=== PATIENT | female | born 1955 | race Caucasian/White ===

== ENCOUNTER 2024-09-14 05:43 | Day surgery (SDC) | payer MEDICARE, OTHER ==
[2024-09-07 15:08] LABS: MEAN PLATELET VOLUME 8.1 FL (7.4-10.4); PRE OP HEMATOCRIT 43.3 % (35.0-45.0); PRE OP HEMOGLOBIN 14.4 g/dL (12.0-16.0); PRE OP PLATELET COUNT 206 X10'3 (140-440); PRE OP WHITE BLOOD COUNT 5.0 10'3 (4.8-10.8); RED CELL DISTRIBUTION WIDTH 14.8 % (11.5-14.5)
[2024-09-07 15:27] LABS: CREATININE 1.10 MG/DL (0.40-0.90); PRE OP ALT 19 U/L (30-65); PRE OP ANION GAP 5 (8-16); PRE OP AST 19 U/L (10-37); PRE OP BILIRUB, TOTAL 0.6 MG/DL (0.0-1.0); PRE OP GLUCOSE 101 MG/DL (70-104); PRE OP POTASSIUM 3.8 MMOL/L (3.4-5.1); PRE OP SODIUM 139 MMOL/L (135-145); TOTAL CARBON DIOXIDE 28.6 MMOL/L (24-32); eGFR 50 ML/MIN
[2024-09-14] VITALS (11 sets, daily range): BP systolic 143–174; BP diastolic 71–96; PULSE 57–106; RESP 14–22; TEMP 97.8; O2SAT 96–100
[~2024-09-14] VITALS: Ht 167.6 cm; Wt 101.9 kg
[~2024-09-14 05:43] MED LIST: AMLO2.5T5 PO; APIX5TAB3 PO; CHOL200012 PO; ENAL-78 PO; FENO145T25 PO; FLUO40CA PO; MAGN400T39 PO; MULT-1074 PO; SIMV-42 PO; SOTA80TA10 PO; SOTA80TA73 PO
[2024-09-14] MEDS: DOCUMENT DATE & TIME OF BETA-BLOCKER PO ONE (06:19)
[2024-09-14] MEDS: ringers solution, lacted 1,000 ML IV SCH (06:19)
[2024-09-14] MEDS: ceFAZolin 2gm/dext,iso 50mL 50 ML IV ONE (06:19)
[2024-09-14] MEDS ORDERED: BUPIVAcaine 2.5mg/ml inj 50ml vial (contains preservative) ONE (06:43)
[2024-09-14] MEDS ORDERED: LIDOcaine 1% 30ml preserv. free vial ONE (06:43)
[2024-09-14] MEDS ORDERED: labetalol 20mg/4ml (5mg/ml) syringe IV PRN (07:20)
[2024-09-14] MEDS ORDERED: hydrALAZINE 20mg/ml inj. IV PRN (07:20)
[2024-09-14] MEDS ORDERED: morphine 4 MG/ML inj SYRINge IV PRN (07:20)
[2024-09-14] MEDS ORDERED: HYDROmorphone/PF 0.2 MG/ML SYRINGE IV PRN (07:20)
[2024-09-14] MEDS ORDERED: ondansetron/PF 4mg/2ml inj IV PRN (07:20)
[2024-09-14] MEDS ORDERED: acetaminophen 1,000mg/100ml IV 100 ML IV PRN (07:20)
[2024-09-14] MEDS ORDERED: ringers solution, lacted 1,000 ML IV SCH (07:20)
[2024-09-14] MEDS ORDERED: propofol inj 20 ML IV ONE (07:32)
[2024-09-14] MEDS ORDERED: midazolam 1 mg/ML 2ml injection ONE (07:33)
[2024-09-14] MEDS ORDERED: rocuronium 10mg/ml inj IV ONE (07:33)
[2024-09-14] MEDS ORDERED: fentaNYL/PF 50MCG/1 ML 2ML syringe ONE (07:33)
[2024-09-14] MEDS: BUPIVAcaine/PF 2.5 mg/ml (0.25%) 30ml vial IJ ONE (07:51)
[2024-09-14] MEDS ORDERED: glycopyrrolate 0.2mg/ml inj ONE (08:38)
[2024-09-14] MEDS ORDERED: dexamethasone sod phosphate 4mg/ml inj. ONE (08:38)
[2024-09-14] MEDS ORDERED: ondansetron/PF 4mg/2ml inj ONE (08:38)
[2024-09-14] MEDS ORDERED: acetaminophen 1,000mg/100ml IV 100 ML IV ONE (08:42)
--- NOTE | 2024-09-14 09:27 | OPERATIVE REPORT ---
Operative Report Providers to CC CC: TROY GREENE MD ~ Date of Procedure: Sep 14, 2024 Pre-Operative Diagnosis: Right inguinal hernia Post-Operative Diagnosis SAME as PRE-Op Procedure Performed Robotic assisted, laparoscopic right inguinal hernia repair with a mesh Surgeon: Troy Greene MD FACS Package Wrapper None Anesthesiologist: Santosh Boyd Type of Anesthesia: General Findings: Moderate-sized right femoral hernia Wound class I Complications None Prosthetics\Implants used: Large right Dextile mesh Estimated Blood Loss: Minimal Specimen Removed: None Description of Procedure: Patient was brought to the operating room and identified by the nursing staff a nd the attending physician. Patient was placed supine and general anesthesia was induced. Patient's abdomen was prepped and draped in standard sterile fashion. Preoperative antibiotics were given. Supraumbilical incision was made to allow for standard Kennedy entry technique. Laparoscope was inserted after insufflation. Bilateral, 8.5 mm robotic trochars were placed under laparoscopic guidance following administration of local anesthetic. The [employer] robotic arm was docked to the patient and instruments placed intra-abdominally under laparoscopic visualization. The left hemipelvis was examined and showed no evidence of left inguinal hernia. A femoral hernia was identified on the right side. Hernia sac was unclear as to size. A rent was created in the peritoneum from the median umbilical fold and carried out laterally towards the anterior superior iliac spine. Preperitoneal flap was created and carried down to the symphysis pubis. The retropubic space of [place] was developed and the bladder swept medially. Dissection was carried out laterally until a femoral hernia sac was identified. This was moderate in size. Hernia sac was completely dissected out of the femoral space and away from the iliac artery and lately reduced. The critical view of the myopectineal orifice was achieved. Dissection was carried out laterally to allow space for mesh deployment. Right round ligament was divided to facilitate adequate dissection and space A large, Dextile mesh and suture was passed intra- abdominally. Mesh was laid in the preperitoneal space covering both indirect, direct, and potential femoral and obturator hernias. Mesh laid without wrinkles or folds. 3 tacking sutures using 0 Ethibond were used to fix the mesh at the symphysis pubis, rectus abdominis, and just anterior to the anterior superior iliac spine. The peritoneal rent was then closed with running, 2/0, absorbable locking suture. [place] were retrieved. Abdomen was deflated and secondary trochars removed. Fascia at the umbilical port site was closed with 0 Vicryl sutures. Skin incisions were closed with 4-0 Monocryl sutures in a subcuticular fashion. Sterile dressings were applied. Patient was awakened and taken to the postanesthesia care unit in stable condition. Counts repoted as correct: Yes TROY GREENE MD Sep 14, 2024 09:27
[2024-09-14] MEDS: HYDROmorphone/PF 0.2 MG/ML SYRINGE IV PRN (09:35)
[2024-09-14] MEDS: HYDROcodone/acetaminophen 5mg/325mg tablet PO PRN (09:36)
== END 2024-09-14 10:30 | disposition home or self-care (01) ==
LOC: PAS 05:43
PROVIDERS: ATTEND Surgery
DX: K40.90 Unilateral inguinal hernia, without obstruction or gangrene, not specified as recurrent (principal); G47.30 Sleep apnea, unspecified; I10 Essential (primary) hypertension; E66.9 Obesity, unspecified; I48.91 Unspecified atrial fibrillation; Z98.890 Other specified postprocedural states; Z79.899 Other long term (current) drug therapy; F32.A Depression, unspecified; F41.9 Anxiety disorder, unspecified; Z96.653 Presence of artificial knee joint, bilateral; Z88.2 Allergy status to sulfonamides; Z68.35 Body mass index [BMI] 35.0-35.9, adult
CPT/HCPCS: 36415; 49650; 80053; 82948; 85025; A4215; A4618; C1781; J0131; J1100; J1171; J2003; J2250; J2405; J2704; J2710; J3010; J3490; J7030; J7120; Z7506; Z7508; Z7512; Z7610